=== PATIENT | female | born 1935 | race Caucasian/White ===

== ENCOUNTER → 2021-11-10 11:49 | Outpatient (CLI) | payer MEDICARE, SELFPAY ==
--- NOTE | 2021-11-10 11:53 | DI.RAD.S_ITS ---
PROCEDURE: XR HIP W PEL IF DONE LT 2V INDICATIONS: left hip injury TECHNIQUE: AP pelvis with lateral view(s) of the left hip(s). COMPARISON: None. FINDINGS: Bones: No fractures or dislocations. Pelvic ring appears intact. No suspicious bony lesions. There is moderate to severe superior joint space narrowing seen of both hips, with associated remodeling changes with subchondral sclerosis and osteophyte formation. Age-appropriate lower lumbar spine degenerative changes are noted. Note is made of osteitis pubis, which is not considered to be frankly abnormal in a woman of this age. Soft tissues: The visualized bowel gas pattern is normal. No suspicious soft tissue calcifications. IMPRESSION: No displaced fracture can be seen. Moderate to severe bilateral hip degenerative change can be seen. If it would be helpful for clinical management decision making, please consider a dedicated hip MRI for further evaluation (assuming that there is no contraindication). If there is strong clinical concern for a labral abnormality, this should be performed according to the arthrogram protocol. Dictated by: Cristo Alexis M.D. on 11/10/2021 at 11:43 Approved by: Cristo Alexis M.D. on 11/10/2021 at 11:43
== END ==
PROVIDERS: Referring Provider Nurse Practitioner Critical Care Medicine; Visit Provider Nurse Practitioner Critical Care Medicine
DX: S79.912A Unspecified injury of left hip, initial encounter (principal); M16.0 Bilateral primary osteoarthritis of hip; X58.XXXA Exposure to other specified factors, initial encounter
CPT/HCPCS: 73502

== ENCOUNTER 2023-12-14 20:13 | Emergency (ER) | payer MEDICARE, SELFPAY ==
[2023-12-14 20:18] VITALS: BP 185/97; PULSE 100; RESP 16; TEMP 37; O2SAT 99; BMI 21.7
--- NOTE | 2023-12-14 20:26 | DI.CT.S_ITS ---
PROCEDURE: CT CERVICAL SPINE WO CON INDICATIONS: fall/injury/no thinners TECHNIQUE: Noncontrast 3 mm thick sections acquired from the skull base to the T4 level. Sagittal and coronal reformats were then constructed. For radiation dose reduction, the following was used: automated exposure control, adjustment of mA and/or kV according to patient size. COMPARISON: None. FINDINGS: Image quality: Excellent. Bones: No fractures or dislocations. There is near complete bony fusion at C4-5 level and complete bony fusion at C6-7 level. Straightening of normal cervical lordosis is seen. Degenerative disc bulge and bilateral uncovertebral hypertrophic changes are noted throughout cervical spine causing defs-uf-kwnlwbuk central canal stenosis and bilateral neural foraminal narrowing most notably at C5-6 level. Visualized superior ribs are intact. Soft tissues: Prevertebral soft tissues are normal in thickness. No paravertebral hematomas. No apical pneumothoraces. IMPRESSION: 1. No displaced fracture or traumatic subluxation. 2. Near complete bony fusion at C4-5 and C6-7 levels. Degenerative disc disease throughout cervical spine as above. Dictated by: Sebastian Fernandez M.D. on 12/14/2023 at 21:21 Approved by: Sebastian Fernandez M.D. on 12/14/2023 at 21:22
--- NOTE | 2023-12-14 20:26 | DI.CT.S_ITS ---
PROCEDURE: CT HEAD/BRAIN WO CON INDICATIONS: fall/injury/no thinners TECHNIQUE: Noncontrast 4.5 mm thick angled axial sections acquired from the foramen magnum to the vertex, with coronal and sagittal reformats. For radiation dose reduction, the following was used: automated exposure control, adjustment of mA and/or kV according to patient size. COMPARISON: None. FINDINGS: Image quality: Diagnostic. CSF spaces: Basal cisterns are patent. No extra-axial fluid collections. The ventricles are symmetric in size and shape. Brain: No intracranial bleeds or masses. There is cerebral volume loss for age, with resultant ventricular and sulcal prominence. There are periventricular and deep white matter chronic small vessel ischemic changes. There is intracranial internal carotid artery atherosclerosis. Skull and face: Left frontal and periorbital soft tissue swelling is seen. No gross acute skull fracture. Sinuses: Visualized sinuses and mastoids are clear. IMPRESSION: 1. No acute intracranial pathology. 2. Age related volume loss and extensive white matter chronic small vessel ischemic changes. 3. Left frontal/periorbital hematoma and soft tissue swelling. No acute skull fracture. Please correlate with CT of facial bone findings from the same day. Dictated by: Sebastian Fernandez M.D. on 12/14/2023 at 21:19 Approved by: Sebastian Fernandez M.D. on 12/14/2023 at 21:20
--- NOTE | 2023-12-14 20:26 | DI.CT.S_ITS ---
PROCEDURE: CT FACIAL BONES WO CON INDICATIONS: fall/injury/no thinners TECHNIQUE: Noncontrast 2.5 mm thick axial images acquired from the mandible through the frontal sinuses, with coronal and sagittal reformatting. For radiation dose reduction, the following was used: automated exposure control, adjustment of mA and/or kV according to patient size. COMPARISON: None. FINDINGS: Image quality: Excellent. Bones and teeth: Orbital garcia are intact. Sinus garcia show no fracture or deformity. Nasal bones and septum are intact. Visualized portions of the mandible demonstrate no fractures or subluxation. Zygomatic arches are intact. Pterygoid plates are intact. Visualized portions of the skull base and auditory canals are intact. Sinuses: Paranasal sinuses are aerated, without fluid levels, mucosal thickening, or mucoceles. Mastoid air cells are aerated. Soft tissues: Significant left periorbital soft tissue swelling and hematoma is seen. Left frontal scalp hematoma and laceration is also noted. No enlarged lymph nodes. No soft tissue lacerations or debris. Vascular: Visualized vascular structures appear normal in the absence of contrast. Bony vascular foramina and canals are intact. IMPRESSION: 1. Left frontal scalp laceration with hematoma. Left periorbital hematoma and swelling. 2. No acute orbital wall fracture. Bilateral orbital globes are intact. 3. No acute facial bone or nasal bone fracture. 4. No acute skull fracture. 5. Bilateral paranasal sinuses are well aerated. Dictated by: Sebastian Fernandez M.D. on 12/14/2023 at 21:23 Approved by: Sebastian Fernandez M.D. on 12/14/2023 at 21:24
--- NOTE | 2023-12-14 21:42 | ED.FALL ---
HPI - Fall General Chief Complaint: Fall Stated Complaint: GLF, No Thinners, Facial Injury Time Seen by Provider: 12/14/23 21:13 Source: patient Mode of arrival: Ambulatory History of Present Illness HPI Narrative: 88-year-old female presents for evaluation of left-sided facial injury. Patient states that she was running and tripped, landing on her left face. Denies loss of consciousness, denies use of blood thinners. There was extensive facial swelling around the left eye Related Data Home Medications Medication Instructions Recorded Confirmed CALCIUM CARBONATE (Calcium) 600 mg PO [facility] ##0 09/24/12 11/06/23 vit cap PO 11/06/23 11/06/23 C,E,zinc,Gs-aqxgt-0-lutein-zeaxanthin 250 mg-2.5 mg-0.5 mg capsule Allergies Allergy/AdvReac Type Severity Reaction Status Date / Time hydromorphone AdvReac Mild HALLUCINATI Unverified 11/06/23 14:59 ONS Patient History Medical History Hematuria (09/06/03) Fracture of forearm, closed (09/17/04) Breast cancer (02/04/02) Malignant neoplasm of female breast (~1993) Plantar warts Acne Osteoarthritis Allergies Migraines Osteoporosis Fractures Cubital tunnel syndrome (~2004) Cervical spine disease (~1969) Mumps Measles Chicken pox Hearing loss Cataracts, bilateral Irregular menstrual cycle (~1954) Colon polyps (~2009) Osteopenia (07/14/16) Degenerative joint disease (DJD) of hip Surgical History Anesthesia History of carpal tunnel release History of appendectomy S/P cervical spinal fusion History of hysterectomy History of mastectomy Status post delivery Status post delivery Status post delivery Status post appendectomy Family History Father Cancer History of heart disease Hyperlipidemia Mother Asthma History of heart disease Social History Smoking Status: Never smoker Smoking Status: Never smoker Substance Use Type: does not use Exam Initial Vital Signs Initial Vital Signs: Vital Signs Temperature 98.6 F 12/14/23 20:18 Pulse Rate 100 H 12/14/23 20:18 Respiratory Rate 16 12/14/23 20:18 Blood Pressure 185/97 H 12/14/23 20:18 Pulse Oximetry 99 12/14/23 20:18 Oxygen Delivery Method Room Air 12/14/23 20:18 Const: Awake, alert, nontoxic appearing HEENT: extensive periorbital bruising. PERRL, EOMI Cardiac: regular rate, regular rhythm RESP: unlabored, clear bilaterally, no wheezing Skin: Warm, Dry, multiple superficial abrasions around L eye/forehead Neuro: AO x3, CN II-XII grossly intact, moves all extremities Course Orders Ordered: Discontinued Medications Acetaminophen (Acetaminophen 325 Mg Tablet) 975 mg PO NOW ONE Stop: 12/14/23 21:43 Last Admin: 12/14/23 21:50 Dose: 975 mg Documented By: LIZ Vital Signs Vital signs: Vital Signs - 8 hr 12/14/23 20:18 Temperature 98.6 F Pulse Rate 100 H Respiratory Rate 16 Blood Pressure 185/97 H Pulse Oximetry 99 Oxygen Delivery Method Room Air MDM - Fall Imaging Data CT - cervical spine: Radiologist's Impression: PROCEDURE: CT CERVICAL SPINE WO CON INDICATIONS: fall/injury/no thinners TECHNIQUE: Noncontrast 3 mm thick sections acquired from the skull base to the T4 level. Sagittal and coronal reformats were then constructed. For radiation dose reduction, the following was used: automated exposure control, adjustment of mA and/or kV according to patient size. COMPARISON: None. FINDINGS: Image quality: Excellent. Bones: No fractures or dislocations. There is near complete bony fusion at C4-5 level and complete bony fusion at C6-7 level. Straightening of normal cervical lordosis is seen. Degenerative disc bulge and bilateral uncovertebral hypertrophic changes are noted throughout cervical spine causing xjng-wy-uhrzwyhb central canal stenosis and bilateral neural foraminal narrowing most notably at C5-6 level. Visualized superior ribs are intact. Soft tissues: Prevertebral soft tissues are normal in thickness. No paravertebral hematomas. No apical pneumothoraces. IMPRESSION: 1. No displaced fracture or traumatic subluxation. 2. Near complete bony fusion at C4-5 and C6-7 levels. Degenerative disc disease throughout cervical spine as above. Dictated by: Sebastian Fernandez M.D. on 12/14/2023 at 21:21 Approved by: Sebastian Fernandez M.D. on 12/14/2023 at 21:22 CT scan - head: Radiologist's Impression: PROCEDURE: CT HEAD/BRAIN WO CON INDICATIONS: fall/injury/no thinners TECHNIQUE: Noncontrast 4.5 mm thick angled axial sections acquired from the foramen magnum to the vertex, with coronal and sagittal reformats. For radiation dose reduction, the following was used: automated exposure control, adjustment of mA and/or kV according to patient size. COMPARISON: None. FINDINGS: Image quality: Diagnostic. CSF spaces: Basal cisterns are patent. No extra-axial fluid collections. The ventricles are symmetric in size and shape. Brain: No intracranial bleeds or masses. There is cerebral volume loss for age, with resultant ventricular and sulcal prominence. There are periventricular and deep white matter chronic small vessel ischemic changes. There is intracranial internal carotid artery atherosclerosis. Skull and face: Left frontal and periorbital soft tissue swelling is seen. No gross acute skull fracture. Sinuses: Visualized sinuses and mastoids are clear. IMPRESSION: 1. No acute intracranial pathology. 2. Age related volume loss and extensive white matter chronic small vessel ischemic changes. 3. Left frontal/periorbital hematoma and soft tissue swelling. No acute skull fracture. Please correlate with CT of facial bone findings from the same day. Dictated by: Sebastian Fernandez M.D. on 12/14/2023 at 21:19 Approved by: Sebastian Fernandez M.D. on 12/14/2023 at 21:20 PROCEDURE: CT FACIAL BONES WO CON INDICATIONS: fall/injury/no thinners TECHNIQUE: Noncontrast 2.5 mm thick axial images acquired from the mandible through the frontal sinuses, with coronal and sagittal reformatting. For radiation dose reduction, the following was used: automated exposure control, adjustment of mA and/or kV according to patient size. COMPARISON: None. FINDINGS: Image quality: Excellent. Bones and teeth: Orbital garcia are intact. Sinus garcia show no fracture or deformity. Nasal bones and septum are intact. Visualized portions of the mandible demonstrate no fractures or subluxation. Zygomatic arches are intact. Pterygoid plates are intact. Visualized portions of the skull base and auditory canals are intact. Sinuses: Paranasal sinuses are aerated, without fluid levels, mucosal thickening, or mucoceles. Mastoid air cells are aerated. Soft tissues: Significant left periorbital soft tissue swelling and hematoma is seen. Left frontal scalp hematoma and laceration is also noted. No enlarged lymph nodes. No soft tissue lacerations or debris. Vascular: Visualized vascular structures appear normal in the absence of contrast. Bony vascular foramina and canals are intact. IMPRESSION: 1. Left frontal scalp laceration with hematoma. Left periorbital hematoma and swelling. 2. No acute orbital wall fracture. Bilateral orbital globes are intact. 3. No acute facial bone or nasal bone fracture. 4. No acute skull fracture. 5. Bilateral paranasal sinuses are well aerated. Dictated by: Sebastian Fernandez M.D. on 12/14/2023 at 21:23 Approved by: Sebastian Fernandez M.D. on 12/14/2023 at 21:24 [facility] Narrative Medical decision making narrative: Ground level trip and fall with head injury. Since patient is over [address] and [address] C-spine were ordered. Due to facial injury facial bone CT was also ordered. Patient has extensive periorbital swelling, however with gentle traction the eyelid was able to be opened and patient reported that her vision is normal when her eyes opened. Pupils are equal and reactive to light bilaterally. There is no large laceration that would be amenable to sutures. The wound was cleaned and Dermabond with Steri-Strips applied to a tiny laceration over left eyebrow. Wound care instructions discussed with the patient and significant other at bedside. Discharge Plan Departure Patient Disposition: Home Clinical Impression: Contusion of face Instructions: DI for Eye Contusion Activity Restrictions/Additional Instructions: You may take Tylenol as needed for discomfort. Apply ice to areas of swelling. You may notice that the bruise spreads across her face, this is a natural effect of gravity and we will heal as your bruising heals. The Dermabond will naturally flake off in about a week. If you get the area wet pat it dry gently Prescriptions: No Action vit C,E,Zn,Wb--hko-zeax 250-2.5-0.5 mg capsule PO CALCIUM CARBONATE (Calcium) 600 mg PO [facility] Qty: 0 Referrals: Flo Ferraro MD [Primary Care Provider] - Stand Alone Forms: Patient Portal/API
[2023-12-14] MEDS: ACETAMINOPHEN 325 MG TABLET 975 MG PO (21:50)
[2023-12-14 22:55] VITALS: BP 135/78; PULSE 85; RESP 18; TEMP 37; O2SAT 98
== END 2023-12-14 23:03 | disposition home or self-care (01) ==
PROVIDERS: Emergency Provider Emergency Medicine; PCP Family Medicine
DX: S00.83XA Contusion of other part of head, initial encounter (principal); W01.0XXA Fall on same level from slipping, tripping and stumbling without subsequent striking against object, initial encounter
CPT/HCPCS: 70450; 70486; 72125; 99283; 99284

== ENCOUNTER → 2023-12-15 06:43 | Outpatient (CLI) | payer MEDICARE, SELFPAY ==
[2023-12-15 08:22] LABS: Add Manual Diff / Slide Review NO; Basophils Absolute Auto 0 /uL (0-100); Basophils Percent Auto 0.4 % (0-2); Eosinophils Absolute Auto 100 /uL (0-450); Eosinophils Percent Auto 0.9 % (2-4); Lymphocytes Absolute Auto 1300 /uL (1100-4500); Lymphocytes Percent Auto 15.7 % (25-40); Mean Corpuscular HGB Conc 34.1 % (30-36); Mean Corpuscular Hemoglobin 31.4 PG (26-34); Mean Corpuscular Volume 92.1 fL (80-100); Monocytes Absolute Auto 700 /uL (0-900); Monocytes Percent Auto 8.2 % (3-14); Neutrophils Absolute Auto 6200 /uL (1500-7000); Neutrophils Percent Auto 74.8 % (50-75); Platelet Count 245 X10^3/uL (150-400); Red Blood Cell Count 4.45 X10^6/uL (4.0-5.2); Red Cell Distribution Width 13.3 % (11.6-14.8); White Blood Cell Count 8.2 X10^3/uL (4.5-11.0)
[2023-12-15 08:43] LABS: BUN Creatinine Ratio 32.4 (6-22); Blood Urea Nitrogen 24 mg/dL (7-17); Calcium 9.7 mg/dL (8.4-10.2); Carbon Dioxide 29 mmol/L (22-32); Chloride 102 mmol/L (98-107); Cholesterol 253 mg/dL (140-199); Estimated Glomerular Filt Rate > 60 mL/min (>60); Glucose 111 mg/dL (80-110); HDL Cholesterol 86 mg/dL (40-60); HEMOLYSIS < 15 (0-50); LDL Cholesterol Calculated 154 mg/dL (<100); Potassium 4.1 mmol/L (3.4-5.1); Sodium 138 mmol/L (137-145); Triglycerides 66 mg/dL (35-150)
--- NOTE | 2023-12-15 14:03 | ST.SWALLOW ---
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 Pt c/o difficulty swallowing breads, pills and liquids at times. She described a globus sensation in mid neck area. Pt reported regurgitation of undigested foods and liquids. She stated this swallow difficulty had begun approximately 2 years ago. Pt did report a PMH of GERD, but does not take medication for it. Subjective Observations Pt was seated in the fluoroscopy chair with directions and procedures described for her. She indicated she understood and agreed to proceed. Patient Positioning Position View Lat-A/P Imaging Lateral View Textures Administered Trials Presented Thin Liquid via Spoon (IDDSI 0 ),Thin Liquid via Cup (IDDSI 0 ),Extremely Thick Liquid via Spoon (IDDSI 4),Regular (IDDSI 7) Barium Tablet No The IDDSI Framework Protocol: IDDSI.1 Oral Impairment Source: The Modified Barium Swallow Impairment Profile (MBSImP??) Lip Closure No labial escape Tongue Control During Bolus Hold Cohesive bolus between tongue to palatal seal Bolus Preparation/Mastication Timely & efficient chewing & mashing Bolus Transport/Lingual Motion Brisk tongue motion Oral Residue Complete oral clearance Initiation of Pharyngeal Swallow Bolus head at posterior angle of ramus (first hyoid excursion) Additional Oral Impairment Observations *OME and DKS were observed to be WNL. *Dentition natural and in good hygiene *Mastication observed with rotary chew pattern. *Good bolus formation, control and AP transition. Pharyngeal Impairment Source: The Modified Barium Swallow Impairment Profile (MBSImP??) Soft Palate Elevation No bolus between soft palate & pharyngeal wall Laryngeal Elevation Comp.sup.move.thyroid cart.w/ comp.approx.arytenoids to epiglot petiole Anterior Hyoid Excursion Partial anterior movement Epiglottic Movement Complete inversion Laryngeal Vestibular Closure Complete; no air/contrast in laryngeal vestibule Pharyngeal Stripping Wave Present - complete Pharyngoesophageal Segment Opening Partial distention/partial duration; partial obstruction of flow Tongue Base Retraction No contrast between tongue base & posterior pharyngeal wall Pharyngeal Residue Complete pharyngeal clearance Location Valleculae Additional Pharyngeal Impairment *Morro aspiration initial Observations trial (teaspoon). Pt had stronge protective cough. Trace residual observed after cough on anterior wall of upper trachea. No more instances of aspiration noted through remainder of MBSS Pharyngeal phase of swallowing noted to be WFL. *Large Zenker's diverticulum observed to fill following each trial presented (lateral view) *Retroflow from diverticulun into the pharynx through UES, increasing aspiration risk *Reduced UES extension and duration secondary to diverticulum size. Several swallows required to partially clear diverticulum and reduce retroflow A/P View Textures Administered Trials Presented Thin Liquid via Spoon (IDDSI 0 ),Thin Liquid via Cup (IDDSI 0 ),Regular (IDDSI 7) The IDDSI Framework Protocol: IDDSI.1 A/P View Observations Esophageal Clearance Upright Position Esophageal retention w/ retrograde flow thru pharyngoesoph segment Esophageal Function Slowed Clearing Additional A-P Observations *Large Zenker's diverticulum ( approx size of a half dollar coin) observed to fill following each trial presented (lateral view) *Unable to view larynx secondary to the diverticulum *Mild esophageal retention observed - cleared with water wash *No barium tablet trial Clinical Impressions Dysphagia Type Esophageal Findings Oral and pharyngeal phases of swallowing observed to be WNL Large Zenker's diverticulum Patient Appropriate for Therapy No Recommendations Diet Comments No diet change Aspiration Precautions Recommended Precautions Upright at 90 Degrees, Alternate Liquids/Solids, Frequent Rest Periods,Small Bites/Sips Treatment Plan Recommended Referrals GI Consult
== END ==
PROVIDERS: PCP Family Medicine; Referring Provider Otolaryngology; Visit Provider Otolaryngology
DX: R13.13 Dysphagia, pharyngeal phase (principal); Z13.9 Encounter for screening, unspecified; E78.2 Mixed hyperlipidemia; E55.9 Vitamin D deficiency, unspecified
CPT/HCPCS: 36415; 74230; 80048; 80061; 82306; 85025; 92611

== ENCOUNTER → 2024-06-30 13:57 | Outpatient (CLI) | payer MEDICARE, SELFPAY ==
[2024-06-30 14:32] LABS: Add Manual Diff / Slide Review NO; Basophils Absolute Auto 0 /uL (0-100); Basophils Percent Auto 0.7 % (0-2); Eosinophils Absolute Auto 100 /uL (0-450); Eosinophils Percent Auto 1.7 % (2-4); Hematocrit 38.1 % (36-46); Hemoglobin 12.9 g/dL (12.0-16.0); Lymphocytes Absolute Auto 1200 /uL (1100-4500); Lymphocytes Percent Auto 18.3 % (25-40); Mean Corpuscular HGB Conc 33.8 % (30-36); Mean Corpuscular Hemoglobin 31.1 PG (26-34); Mean Corpuscular Volume 91.8 fL (80-100); Monocytes Absolute Auto 500 /uL (0-900); Monocytes Percent Auto 7.9 % (3-14); Neutrophils Absolute Auto 4800 /uL (1500-7000); Neutrophils Percent Auto 71.4 % (50-75); Platelet Count 179 X10^3/uL (150-400); Red Blood Cell Count 4.15 X10^6/uL (4.0-5.2); Red Cell Distribution Width 13.3 % (11.6-14.8); White Blood Cell Count 6.7 X10^3/uL (4.5-11.0)
[2024-06-30 14:42] LABS: Hemoglobin A1C% w Est Avg Glu 5.2 % (4.0-6.0)
[2024-06-30 14:51] LABS: HEMOLYSIS < 15 (0-50); Iron 75 ug/dL (37-170)
[2024-06-30 14:53] LABS: Alanine Aminotransferase 21 IU/L (<35); Albumin 4.3 g/dL (3.5-5.0); Albumin Globulin Ratio 1.7 (1.0-2.8); Alkaline Phosphatase 65 U/L (38-126); Aspartate Aminotransferase 26 IU/L (14-36); BUN Creatinine Ratio 36.8 (6-22); Bilirubin Total 0.4 mg/dL (0.2-1.3); Blood Urea Nitrogen 25 mg/dL (7-17); Calcium 9.5 mg/dL (8.4-10.2); Carbon Dioxide 26 mmol/L (22-32); Chloride 104 mmol/L (98-107); Estimated Glomerular Filt Rate > 60 mL/min (>60); Globulin 2.5 g/dL (1.7-4.1); Glucose 119 mg/dL (80-110); HEMOLYSIS < 15 (0-50); Potassium 4.2 mmol/L (3.4-5.1); Sodium 138 mmol/L (137-145); Total Protein 6.8 g/dL (6.3-8.2)
[2024-06-30 15:05] LABS: Percent Iron Saturation 27 % (15-50); Total Iron Binding Capacity 278 ug/dL (265-497); Transferrin 229 mg/dL (206-381)
[2024-06-30 15:23] LABS: TSH w/ Reflex to FT4 2.59 uIU/mL (0.47-4.68)
[2024-06-30 15:29] LABS: Ferritin 57 ng/mL (11-264)
[2024-06-30 15:43] LABS: Vitamin B12 Reflex MMA if <400 757 pg/mL (239-931)
[2024-06-30 15:58] LABS: Folate 12.3 ng/mL (2.76-20.0)
[2024-06-30 21:24] LABS: Vitamin D 25 Hydroxy (D3) 35.6 ng/mL (30.0-100.0)
== END ==
PROVIDERS: PCP Family Medicine; Referring Provider Family Medicine; Visit Provider Family Medicine
DX: R53.1 Weakness (principal); R73.01 Impaired fasting glucose; Z98.890 Other specified postprocedural states; E55.9 Vitamin D deficiency, unspecified; R53.83 Other fatigue; Z71.3 Dietary counseling and surveillance; Z87.19 Personal history of other diseases of the digestive system; Z13.21 Encounter for screening for nutritional disorder
CPT/HCPCS: 36415; 80053; 82306; 82607; 82728; 82746; 83036; 83540; 83550; 84443; 85025

== ENCOUNTER 2025-02-06 10:05 | Emergency (ER) | payer MEDICARE, SELFPAY ==
[2025-02-06 10:33] VITALS: BP 203/100; PULSE 107; RESP 15; TEMP 37.2; O2SAT 98; BMI 22.6
[2025-02-06 11:24] VITALS: BP 194/95
--- NOTE | 2025-02-06 11:26 | ED_ITS ---
HPI - URI/Sore Throat <Constance Valladares PA-C - Last Filed: 02/06/25 12:15> General Chief Complaint: Upper Respiratory Symptoms Stated Complaint: Exposed to some kind of chemicals , Time Seen by Provider: 02/06/25 11:15 Source: patient Mode of arrival: Ambulatory History of Present Illness HPI Narrative: 89-year-old female presents to the ED with 6 days of URI symptoms. Patient complains of a sore throat, nasal congestion, cough. Patient states that her ribs feels sore from the coughing. No chest pain, shortness of breath, syncope. Patient does endorse that she may not be drinking enough water since cold water is causing her to cough. Related Data Home Medications ?Medication ?Instructions ?Recorded ?Confirmed CALCIUM CARBONATE (Calcium) 600 mg PO [facility] ##0 3 11/22/24 vit cap PO 11/06/23 11/22/24 C,E,zinc,Ct-cqnlw-2-lutein-zeaxanthin 250 mg-2.5 mg-0.5 mg capsule Previous Rx's ?Medication ?Instructions ?Recorded gabapentin 100 mg capsule 100 mg PO BEDTIME #14 caps 0 11/22/24 benzonatate 200 mg capsule 200 mg PO TID PRN cough #30 caps 02/06/25 Allergies Allergy/AdvReac Type Severity Reaction Status Date / Time hydromorphone AdvReac Mild HALLUCINATI Verified 11/22/24 11:47 ONS Review of Systems <Constance Valladares PA-C - Last Filed: 02/06/25 12:15> Constitutional Constitutional: Denies chills, Denies fatigue, Denies fever(s), Denies frequent falls, Denies lethargy, Reports poor appetite and Denies weakness Eyes Eyes: Denies change in vision, Denies eye discharge, Denies irritation and Denies loss of vision ENT Ears, Nose, Mouth, and Throat: Denies change in voice, Denies dizziness, Denies neck pain, Reports sore throat and Denies throat swelling Cardiovascular Cardiovascular: Denies chest pain, Denies irregular heart rhythm, Reports lightheadedness, Denies palpitations, Denies dyspnea, Denies dyspnea on exertion and Denies orthopnea Respiratory Respiratory: Reports chest congestion, Reports cough, Denies dyspnea, Denies dyspnea on exertion and Denies wheezing Gastrointestinal Gastrointestinal: Denies abdominal pain, Denies change in bowel habits, Denies diarrhea, Denies nausea and Denies vomiting Musculoskeletal Musculoskeletal: Denies neck pain and Denies numbness Integumentary/Breasts Skin/Breast: Denies pruritus, Denies erythema, Denies rash and Denies wounds Neurologic Neurologic: Denies behavioral changes, Denies confusion, Denies dizziness, Denies frequent falls, Denies loss of vision, Denies numbness and Denies weakness Psychiatric Psychiatric: Denies anxiety, Denies behavioral changes, Denies confusion, Denies depression, Denies homicidal ideation and Denies suicidal ideation Endocrine Endocrine: Denies fatigue, Denies flushing and Denies palpitations Hematologic/Lymphatic Hematologic/Lymphatic: Denies easy bruising Allergic/Immunologic Allergic/Immunologic: Denies urticaria, Denies throat swelling and Denies wheezing Patient History <Constance Valladares PA-C - Last Filed: 02/06/25 12:15> Medical History Zenker diverticulum Radius fracture (10/29/04) Hematuria (09/06/03) Fracture of forearm, closed (09/17/04) Breast cancer (02/04/02) Malignant neoplasm of female breast (~1993) Plantar warts Acne Osteoarthritis Allergies Migraines Osteoporosis Fractures Cubital tunnel syndrome (~2004) Cervical spine disease (~1969) Mumps Measles Chicken pox Hearing loss Cataracts, bilateral Irregular menstrual cycle (~1954) Colon polyps (~2009) Osteopenia (07/14/16) Degenerative joint disease (DJD) of hip Surgical History S/P removal of Zenker's diverticulum (05/25/24) Anesthesia History of carpal tunnel release History of appendectomy S/P cervical spinal fusion History of hysterectomy History of mastectomy Status post delivery Status post delivery Status post delivery Status post appendectomy Family History Father Cancer History of heart disease Hyperlipidemia Mother Asthma History of heart disease Exam <Constance Valladares PA-C - Last Filed: 02/06/25 12:15> Narrative Exam Narrative: Const General:?cooperative, healthy appearing and comfortable HENMT Head:?normal to inspection Ears:?hearing grossly normal bilaterally Nose:?external nose normal Face and sinus:?normal facial exam and sinuses nontender Mouth:?oral mucosae normal Throat:?posterior oropharynx normal Eyes General:?appearance normal, both eyes and all related structures Neck Neck:?normal visual inspection and no lymphadenopathy noted Resp Effort & Inspection:?normal respiratory effort Auscultation:?clear to auscultation bilaterally Cardio Rate:?regular rate Rhythm:?regular rhythm Neuro General:?patient alert, patient awake and patient oriented x3 Initial Vital Signs Initial Vital Signs: Vital Signs Temperature 98.9 F 02/06/25 10:33 Pulse Rate 107 H 02/06/25 10:33 Respiratory Rate 15 02/06/25 10:33 Blood Pressure 203/100 H 02/06/25 10:33 Pulse Oximetry 98 02/06/25 10:33 Oxygen Delivery Method Room Air 02/06/25 10:33 <Anita Chiu DO - Last Filed: 02/14/25 01:30> Initial Vital Signs Initial Vital Signs: Vital Signs Temperature 98.9 F 02/06/25 10:33 Pulse Rate 107 H 02/06/25 10:33 Respiratory Rate 15 02/06/25 10:33 Blood Pressure 203/100 H 02/06/25 10:33 Pulse Oximetry 98 02/06/25 10:33 Oxygen Delivery Method Room Air 02/06/25 10:33 Course <Constance Valladares PA-C - Last Filed: 02/06/25 12:15> Orders Ordered: ED Orders 02/06/25 10:40 Covid-19 + FLU A/B + RSV - PCR Stat Vital Signs Vital signs: Vital Signs - 8 hr 02/06/25 10:33 02/06/25 11:24 02/06/25 12:04 Temperature 98.9 F Pulse Rate 107 H 62 Respiratory Rate 15 16 Blood Pressure 203/100 H 194/95 H 164/78 H Pulse Oximetry 98 97 Oxygen Delivery Method Room Air Room Air <Anita Chiu DO - Last Filed: 02/14/25 01:30> Orders Ordered: ED Orders 02/06/25 10:40 Covid-19 + FLU A/B + RSV - PCR Stat Vital Signs Vital signs: Vital Signs - 8 hr 02/06/25 10:33 02/06/25 11:24 02/06/25 12:04 Temperature 98.9 F Pulse Rate 107 H 62 Respiratory Rate 15 16 Blood Pressure 203/100 H 194/95 H 164/78 H Pulse Oximetry 98 97 Oxygen Delivery Method Room Air Room Air MDM - URI/Sore Throat <Constance Valladares PA-C - Last Filed: 02/06/25 12:15> Lab Data Labs: Lab Results 02/06/25 Range/Units 10:40 SARS-CoV-2 (PCR) Negative (Negative) Influenza A (RT-PCR) Flu a negative (NEGATIVE) Influenza B (RT-PCR) Flu b negative (NEGATIVE) RSV (PCR) Negative (Negative) MDM Narrative Medical decision making narrative: 89-year-old female presents to the ED with 6 days of URI symptoms. Respiratory panel ordered. Patient hypertensive at 203/100. Patient was on some blood pressure medications in the past, however medications were stopped since her blood pressure normalized. Respiratory panel negative for COVID-19, influenza, RSV. Will prescribe Tessalon Perles for cough. Will retake blood pressure. Blood pressure came down to 164/78. Recommend supportive measures with good hydration, [id number]-[id number] cough and cold remedies, Tessalon Perles. recommend monitoring blood pressure at home. Recommend follow-up with PCP as soon as possible. ED return precautions discussed with patient. Patient verbalized understanding. Medical records reviewed: Yes <Anita Chiu DO - Last Filed: 02/14/25 01:30> Lab Data Labs: Lab Results 02/06/25 Range/Units 10:40 SARS-CoV-2 (PCR) Negative (Negative) Influenza A (RT-PCR) Flu a negative (NEGATIVE) Influenza B (RT-PCR) Flu b negative (NEGATIVE) RSV (PCR) Negative (Negative) Discharge Plan Departure Patient Disposition: Home Clinical Impression: Upper respiratory infection, viral Instructions: DI for Viral Upper Respiratory Infection -- Adult Activity Restrictions/Additional Instructions: You have been evaluated in the emergency department today for a cough and congestion. You tested negative for influenza, COVID-19, RSV. It appears that you have a viral upper respiratory infection that is causing your symptoms. You have been prescribed Tessalon Perles for cough. You may also take other ptzu-kna-ftdmdce cough and cold remedies for your symptoms. Please drink plenty of water. Your blood pressure was elevated today in the emergency department. This could be due to being sick, however it is important for you to continue monitoring the blood pressure at home. Please follow-up with your primary care doctor as soon as possible for further evaluation. Return to the emergency room if you have worsening symptoms, chest pain, shortness of breath. Prescriptions: New benzonatate 200 mg capsule 200 mg PO TID PRN (Reason: cough) Qty: 30 0RF No Action vit C,E,Zn,Pq-smbzy6-emt-zeax 250-2.5-0.5 mg capsule PO gabapentin 100 mg capsule 100 mg PO BEDTIME Qty: 14 0RF CALCIUM CARBONATE (Calcium) 600 mg PO [facility] Qty: 0 Referrals: Flo Ferraro MD [Primary Care Provider, Family Practice] Stand Alone Forms: Patient Portal/API ED Sign-out <Anita Chiu, - Last Filed: 02/14/25 01:30> Cosign ED Attending Darshanaature Attestation: I was available for consultation.
[2025-02-06 11:30] LABS: Influenza A - CEPHEID Flu A NEGATIVE (NEGATIVE); Influenza B - CEPHEID Flu B NEGATIVE (NEGATIVE)
[2025-02-06 11:33] LABS: COVID-19 CEPHEID 4-PLEX PCR Negative (Negative)
[2025-02-06 12:04] VITALS: BP 164/78; PULSE 62; RESP 16; O2SAT 97
== END 2025-02-06 12:05 | disposition home or self-care (01) ==
PROVIDERS: Emergency Medicine; Emergency Provider Student in an Organized Health Care Education/Training Program; PCP Family Medicine
DX: J06.9 Acute upper respiratory infection, unspecified (principal)
CPT/HCPCS: 87637; 99282

== ENCOUNTER 2025-02-24 13:29 | Emergency (ER) | payer MEDICARE, SELFPAY ==
[2025-02-24 13:36] VITALS: BP 217/103; PULSE 100; RESP 18; TEMP 36.6; O2SAT 98; BMI 23.6
--- NOTE | 2025-02-24 13:39 | DI.RAD.S_ITS ---
PROCEDURE: XR WRIST RT MIN 3V INDICATIONS: Fall, wrist pain and swelling TECHNIQUE: 4 views of the wrist were acquired. COMPARISON: None. FINDINGS: Bones: Mildly displaced impacted distal radial fracture. Ulna styloid fracture is present with fracture lucency extending to the distal metaphysis. Soft tissues: No suspicious soft tissue calcifications. IMPRESSION: Distal radial and ulnar fractures with mild displacement. Dictated by: Martha Crooks M.D. on 02/24/2025 at 15:09 Approved by: Martha Crooks M.D. on 02/24/2025 at 15:09
--- NOTE | 2025-02-24 14:46 | DI.CT.S_ITS ---
PROCEDURE: CT CERVICAL SPINE WO CON INDICATIONS: head injury, fall, TECHNIQUE: Noncontrast 3 mm thick sections acquired from the skull base to the T4 level. Sagittal and coronal reformats were then constructed. For radiation dose reduction, the following was used: automated exposure control, adjustment of mA and/or kV according to patient size. COMPARISON: [facility], CT, CT CERVICAL SPINE WO CON, 12/14/2023, 20:51. FINDINGS: Image quality: Excellent. Bones: No fractures or dislocations. Visualized superior ribs are intact. Multilevel degenerative change. There is osseous fusion at C4-5 as well as C5-6. Multilevel degenerative disc space narrowing as well as anterior osteophytes. Soft tissues: Prevertebral soft tissues are normal in thickness. No paravertebral hematomas. No apical pneumothoraces. IMPRESSION: No displaced fracture or traumatic subluxation. Dictated by: Martha Crooks M.D. on 02/24/2025 at 15:47 Approved by: Martha Crooks M.D. on 02/24/2025 at 15:48
--- NOTE | 2025-02-24 14:46 | DI.CT.S_ITS ---
PROCEDURE: CT HEAD/BRAIN WO CON INDICATIONS: head injury, fall, TECHNIQUE: Noncontrast 4.5 mm thick angled axial sections acquired from the foramen magnum to the vertex, with coronal and sagittal reformats. For radiation dose reduction, the following was used: automated exposure control, adjustment of mA and/or kV according to patient size. COMPARISON: [facility], CT, CT HEAD/BRAIN WO CON, 12/14/2023, 20:51. FINDINGS: Image quality: Diagnostic. CSF spaces: Basal cisterns are patent. No extra-axial fluid collections. The ventricles are symmetric in size and shape. Brain: No intracranial bleeds or mass effect. There is cerebral volume loss, with resultant ventricular and sulcal prominence. There are periventricular and deep white matter chronic small vessel ischemic changes. There is intracranial internal carotid artery atherosclerosis. Skull and face: Calvarium and visualized facial bones appear intact, without suspicious lesions. Frontal scalp and right periorbital hematoma. Sinuses: Visualized sinuses and mastoids are clear. IMPRESSION: 1. No acute intracranial process. Right periorbital and scalp hematomas. 2. Moderate atrophy and chronic microvascular ischemic changes. Dictated by: Martha Crooks M.D. on 02/24/2025 at 15:45 Approved by: Martha Crooks M.D. on 02/24/2025 at 15:47
[2025-02-24] MEDS: BACITRACIN OINT 0.9 GM PCKT 1 APPLIC TOP (15:01)
--- NOTE | 2025-02-24 15:14 | PC.NURSE ---
gave med and applied topical ointment to head with wrap to pt in room 5, moved to waiting area near RP chairs
--- NOTE | 2025-02-24 15:58 | ED.FALL ---
HPI - Fall General Chief Complaint: Fall Stated Complaint: Fell, thinks right arm is broke, hit head Time Seen by Provider: 02/24/25 13:45 Mode of arrival: Ambulatory History of Present Illness HPI Narrative: 89-year-old female patient with a history of dyslipidemia, depression, osteoporosis who tripped and fell outside striking her face on the sidewalk and injuring her right cheek and also complains of her right wrist. No loss of consciousness and no other complaint. Related Data Home Medications ?Medication ?Instructions ?Recorded ?Confirmed CALCIUM CARBONATE (Calcium) 600 mg PO [facility] ##0 09/24/12 11/22/24 vit cap PO 11/06/23 11/22/24 C,E,zinc,Og-ujczg-2-lutein-zeaxanthin 250 mg-2.5 mg-0.5 mg capsule Previous Rx's ?Medication ?Instructions ?Recorded gabapentin 100 mg capsule 100 mg PO BEDTIME #14 caps 11/22/24 benzonatate 200 mg capsule 200 mg PO TID PRN cough #30 caps 02/06/25 hydrocodone 5 mg-acetaminophen 325 1 tab PO Q6H PRN pain #10 tabs 02/24/25 mg tablet Allergies Allergy/AdvReac Type Severity Reaction Status Date / Time hydromorphone AdvReac Mild HALLUCINATI Verified 02/24/25 13:39 ONS Review of Systems Review of Systems ROS Unobtainable: All systems reviewed & are unremarkable except as noted in HPI and below ENT Ears, Nose, Mouth, and Throat: Reports as per HPI Musculoskeletal Musculoskeletal: Reports as per HPI Patient History Medical History Zenker diverticulum Radius fracture (10/29/04) Hematuria (09/06/03) Fracture of forearm, closed (09/17/04) Breast cancer (02/04/02) Malignant neoplasm of female breast (~1993) Plantar warts Acne Osteoarthritis Allergies Migraines Osteoporosis Fractures Cubital tunnel syndrome (~2004) Cervical spine disease (~1969) Mumps Measles Chicken pox Hearing loss Cataracts, bilateral Irregular menstrual cycle (~1954) Colon polyps (~2009) Osteopenia (07/14/16) Degenerative joint disease (DJD) of hip Surgical History S/P removal of Zenker's diverticulum (05/25/24) Anesthesia History of carpal tunnel release History of appendectomy S/P cervical spinal fusion History of hysterectomy History of mastectomy Status post delivery Status post delivery Status post delivery Status post appendectomy Family History Father Cancer History of heart disease Hyperlipidemia Mother Asthma History of heart disease Social History Smoking Status: Never smoker Smoking Status: Never smoker Exam Narrative Exam Narrative: General: Alert and conversant. Mild distress Appears well nourished and well hydrated Craniofacial: Abrasion on the scalp above the forehead in the frontal region with no hematoma. No bony deformity. Slight facial abrasion but no bony tenderness of the face. There is a significant right periorbital hematoma. Eyes: Right. Heel hematoma but PERRLA EOMI conjunctiva clear. Vision intact to printed word HEENT: Tragus, pinnae nontender. Tympanic membranes normal appearance. Oropharynx clear with no swelling, exudate or asymmetry of the pharynx. Nares clear. No sinus tenderness Neck: No tenderness or adenopathy. No meningismus. No JVD Lungs: Clear to auscultation with good air movement. No wheezing, rales or rhonchi. No respiratory distress Cardiac: Regular rate and rhythm with no appreciable murmur or gallop Abdomen: Soft, nontender with no distention or masses. Normal bowel sounds. No rebound or guarding Musculoskeletal: Right wrist deformity and tenderness at the distal radius and ulna. Otherwise Exam of the extremities, axial spine and ribcage reveals no deformity, bony tenderness or swelling. Range of motion intact Neuro: Alert and oriented. Cranial nerves, motor, sensory and cerebellar all grossly intact. No focal deficit Skin: Warm and normal color. No rashes Psychological: Normal affect and interaction. No evidence of delusion or psychosis. Normal mood. Initial Vital Signs Initial Vital Signs: Vital Signs Temperature 98 F 02/24/25 13:36 Pulse Rate 100 H 02/24/25 13:36 Respiratory Rate 18 02/24/25 13:36 Blood Pressure 217/103 H 02/24/25 13:36 Pulse Oximetry 98 02/24/25 13:36 Oxygen Delivery Method Room Air 02/24/25 13:36 Procedures Orthopedic Fracture Reduction Fracture #1: Time Out Performed: Yes Side: right Fracture Reduction Location: radius (Distal radius) Analgesia: hematoma block (10 mL of 1% lidocaine) Technique: direct manipulation and traction/counter-traction Post Reduction X-rays Demonstrate: acceptable reduction Post-reduction neuro exam: intact Post-reduction vascular exam: intact Splint Applied: Yes Patient Tolerated Procedure: Well (Splint applied by MD) Course Orders Ordered: ED Orders 02/24/25 14:46 CT cervical spine wo con Stat CT head/brain wo con Stat 02/24/25 18:21 XR wrist RT 2V Stat Discontinued Medications Hydrocodone Bitart/Acetaminophen (Hydrocodone/Acet 5/325 Tablet) 1 tab PO NOW ONE Stop: 02/24/25 14:47 Last Admin: 02/24/25 15:01 Dose: 1 tab Documented By: EZEKIEL Hydrocodone Bitart/Acetaminophen (Hydrocodone/Acet 5/325 Tablet) 1 tab PO NOW ONE Stop: 02/24/25 16:50 Last Admin: 02/24/25 17:02 Dose: Not Given Documented By: EZEKIEL Bacitracin (Bacitracin Oint 0.9 Gm Pckt) 1 applic TOP NOW ONE Stop: 02/24/25 14:47 Last Admin: 02/24/25 15:01 Dose: 1 applic Documented By: EZEKIEL Ketorolac Tromethamine (Ketorolac 30 Mg/Ml Vial) 15 mg IM NOW ONE Stop: 02/24/25 16:48 Last Admin: 02/24/25 16:55 Dose: 15 mg Documented By: EZEKIEL Lidocaine HCl (Lidocaine 1% 20 Ml) 20 ml INJ INTRA-OP ONE Stop: 02/24/25 17:06 Last Admin: 02/24/25 17:27 Dose: 20 ml Documented By: EZEKIEL Vital Signs Vital signs: Vital Signs - 8 hr 02/24/25 16:27 02/24/25 20:20 Pulse Rate 77 76 Respiratory Rate 12 17 Blood Pressure 177/91 H 159/72 H Pulse Oximetry 99 96 Oxygen Delivery Method Room Air Room Air MDM - Fall Imaging Data CT scan - head: Radiologist's Impression: IMPRESSION: 1. No acute intracranial process. Right periorbital and scalp hematomas. 2. Moderate atrophy and chronic microvascular ischemic changes. Extremity x-ray #1: Attestation: I personally reviewed and interpreted this imaging study as follows: My Impression: Right wrist radiographs: Distal radius and ulnar fractures. The radius is impacted and slightly posteriorly angulated. [facility] Narrative Medical decision making narrative: 15:55 I discussed the patient's fracture and care with Orthopedics, Dr. Mcginnis who recommends traction and volar reduction of the fracture and then sugar-tong splint and follow up with his office, [facility]. Postreduction films reveal little improvement but neurovascular is intact and splint in place. Orthopedics had commented that it might not stay in place. Patient has fall with facial contusion and right periorbital hematoma with minor head injury but negative head CT. Right distal radius and ulna fractures which have been treated and splinted in the ER. Home care instructions given and follow up with Orthopedics for the wrist fracture. Return to the ER for any worsening symptoms Discharge Plan Departure Patient Disposition: Home Clinical Impression: Closed fracture distal radius and ulna, Minor closed head injury, Abrasion of scalp, Ground-level fall, Periorbital hematoma of right eye Instructions: Eye Contusion, Colles Fracture, How to Prevent Falls, Closed Head Injury Activity Restrictions/Additional Instructions: Plan: Splint, elevation, ice, ibuprofen and hydrocodone. Orthopedics office will be calling you for follow up within the next few days. Prescriptions: New hydrocodone-acetaminophen 5-325 mg tablet 1 tab PO Q6H PRN (Reason: pain) Qty: 10 0RF No Action vit C,E,Zn,Kr-uvmqt2-zxy-zeax 250-2.5-0.5 mg capsule PO gabapentin 100 mg capsule 100 mg PO BEDTIME Qty: 14 0RF CALCIUM CARBONATE (Calcium) 600 mg PO [facility] Qty: 0 benzonatate 200 mg capsule 200 mg PO TID PRN (Reason: cough) Qty: 30 0RF Referrals: Flo Ferraro MD [Primary Care Provider, Family Practice] Westley Mcginnis MD [Physician, Orthopedics] Referral Note: Follow up with Orthopedics in 2-3 days Clinical Impression: Closed fracture distal radius and ulna Stand Alone Forms: Patient Portal/API
[2025-02-24 16:27] VITALS: BP 177/91; PULSE 77; RESP 12; O2SAT 99
[2025-02-24] MEDS: KETOROLAC 30 MG/ML VIAL 15 MG IM (16:55)
[2025-02-24] MEDS: LIDOCAINE 1% 20 ML INJ (17:27)
--- NOTE | 2025-02-24 17:28 | PC.NURSE ---
pt already given same script of norco from previous doc 2hrs prior, had already pulled med and placed in med cup before clarifying with provider, wasted unused med in solid waste with nurse lucita as witradhaness
--- NOTE | 2025-02-24 18:21 | DI.RAD.S_ITS ---
PROCEDURE: XR WRIST RT 2V INDICATIONS: Postreduction TECHNIQUE: To views of the wrist were acquired. COMPARISON: [facility], , XR WRIST RT MIN 3V, 02/24/2025, 14:03. FINDINGS: Bones: Overlying cast material limits finer bony detail. Distal radial fracture is similar appearance compared to prior. Redemonstration of ulnar styloid fracture. Soft tissues: No suspicious soft tissue calcifications. IMPRESSION: Distal radial ulnar styloid fracture are similar appearance to prior. Dictated by: Jason Luong M.D. on 02/24/2025 at 18:44 Approved by: Jason Luong M.D. on 02/24/2025 at 18:45
[2025-02-24 20:20] VITALS: BP 159/72; PULSE 76; RESP 17; O2SAT 96
== END 2025-02-24 20:10 | disposition home or self-care (01) ==
PROVIDERS: Emergency Provider Emergency Medicine; PCP Family Medicine
DX: S52.591A Other fractures of lower end of right radius, initial encounter for closed fracture (principal); S00.01XA Abrasion of scalp, initial encounter; H57.89 Other specified disorders of eye and adnexa; F32.A Depression, unspecified; W01.198A Fall on same level from slipping, tripping and stumbling with subsequent striking against other object, initial encounter
CPT/HCPCS: 25605; 70450; 72125; 73100; 73110; 96372; 99284; J1885